=== PATIENT | male | born 2000 | race Caucasian/White ===

== ENCOUNTER 2022-05-29 11:06 | Emergency (ER) | payer OTHER ==
[~2022-05-29] VITALS: Ht 167.6 cm; Wt 77.2 kg
[2022-05-29 13:22] VITALS: BP 122/80
== END 2022-05-29 13:24 | disposition home or self-care (01) ==
LOC: EMS 11:06
DX: F32.1 Major depressive disorder, single episode, moderate (principal); F12.90 Cannabis use, unspecified, uncomplicated
CPT/HCPCS: 99284